=== PATIENT | male | born 1990 | race Caucasian/White ===

== ENCOUNTER 2019-04-03 14:02 | Inpatient (IN) ==
[2019-04-03] MEDS ORDERED: THIAMINE HCL 100 MG in SYRINGE 9 ML IV STA (14:55)
[2019-04-03] MEDS ORDERED: LORazepam 1 MG/2 ML VIAL IV STA ×2 (14:55→18:58)
[2019-04-03] MEDS ORDERED: SODIUM CHLORIDE 0.9% 1000ML 1,000 ML IV SCH (15:00)
[2019-04-03 15:25] LABS: Basophils # (auto) 0.05 K/uL (0-0.2); Basophils % (auto) 0.4 %; Eosinophils # (auto) 0.11 K/uL (0-0.5); Eosinophils % (auto) 0.9 %; Hematocrit (blood only) 50.6 % (42-52); Hemoglobin 18.4 g/dL (14.0-18.0); Immature Granulocytes # (auto) 0.05 K/uL (0.00-0.02); Immature Granulocytes % (auto) 0.4 %; Lymphocytes # (auto) 1.52 K/uL (1.2-3.4); Lymphocytes % (auto) 12.6 %; Mean Corpuscular Hgb Conc 36.4 g/dL (32-36); Mean Corpuscular Volume 93.5 fL (80-100); Mean Platelet Volume 11.1 fL (7.4-10.4); Monocytes # (auto) 0.83 K/uL (0.11-0.59); Monocytes % (auto) 6.9 %; Neutrophils # (auto) 9.52 K/uL (1.4-6.5); Neutrophils % (auto) 78.8 %; Platelet Count 287 K/uL (130-400); RDW Coefficient of Variation 13.8 % (11.5-14.5); RDW Standard Deviation 46.9 fL (36.4-46.3); Red Blood Count 5.41 M/uL (4.7-6.1); White Blood Count 12.08 K/uL (4.8-10.8)
[2019-04-03 15:41] LABS: Albumin Level 4.1 gm/dl (3.4-5.0); BUN Creatinine Ratio 7.9 (10-20); Calcium 9.7 mg/dl (8.5-10.1); Creatinine Clr Calc Pharmacy 185.7 ml/min; Est GFR (Non-African American) 102.7; Potassium 3.6 mmol/L (3.5-5.1)
[2019-04-03 15:44] LABS: Albumin Globulin Ratio 0.9 (0.9-2); Bilirubin,Total 0.6 mg/dl (0.2-1); Globulin 4.4 gm/dl (2.5-4.0); Total Protein 8.5 gm/dl (6.4-8.2)
[2019-04-03 15:45] LABS: INR 1.1 (0.9-1.1); Prothrombin Time 10.9 Seconds (9.0-12.0)
[2019-04-03 15:51] LABS: Acetaminophen < 2 ug/ml (10-30)
[2019-04-03 15:52] LABS: Salicylate < 1.7 mg/dl (2.8-20)
[2019-04-03 16:08] LABS: Appearance Urine Clear (Clear); Bacteria Urine Automated Negative (Negative); Blood Urine Negative (Negative); Color Urine Dark Yellow; Glucose Urine UA Negative (Negative); Ketones Urine Trace (Negative); Leukocyte Esterase Urine Trace (Negative); Nitrite Urine Negative (Negative); Protein Urine Trace (Negative); RBC Urine Automated 0-4 /hpf (0-4); Specific Gravity Urine 1.029 (1.000-1.030); Urobilinogen Urine Positive (Negative)
[2019-04-03 16:10] LABS: Bilirubin Urine Negative (Negative); Ictotest Urine Negative (Negative)
[2019-04-03 16:36] LABS: Amphetamines+Metham, Urine Neg (Neg); Barbiturates, Urine Neg (Neg); Benzodiazepine, Urine Neg (Neg); Cocaine, Urine Neg (Neg); MDMA (Ecstacy), Urine Neg (Neg); Methadone, Urine Neg (Neg); Opiate, Urine Neg (Neg); Phencyclidine, Urine Neg (Neg)
--- NOTE | 2019-04-03 18:53 | Emergency Department Note ---
Entered by Marcia Shipman acting as a scribe for Owen Higgins DO History of Present Illness General Chief complaint: Mental Health Evaluation Stated complaint: SUICIDAL THOUGHTS Time Seen by Provider: 04/03/19 14:50 Source: patient History of Present Illness Provider complaint: mental health evaluation Onset (ago): hour(s) (today) Location: head Pain Consistency: + constant Maximum Pain Intensity: 1 Quality: + other (mental health evaluation) Associated symptoms: + other (dull pain on the sides of his abdomen and states that he has tingling in his feet) The patient is a 28 year old male who presents to the Emergency Department with complaints of a mental health evaluation today. The patient states that he has had a drinking problem for the last 5 years. He states that he drinks whatever is available. He states that he last had alcohol last night and states that he drank about half of a fifth. 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 He states that he does not hear voices. The patient states that he has gone through withdrawal before, the last of which was several months ago. The patient states that he has not had blackouts before from stopping drinking. He states that he feels "hopeless." The patient states that he has not seen a counselor or tried to detox before. He reports having a dull pain on the sides of his abdomen and states that he has tingling in his feet. The patient states that he was taking Lisinopril HCTZ and states that he has stopped taking it. The patient denies tobacco or drug use. He denies a history of surgeries. Home Medications Home Medications Medication Instructions Recorded Confirmed Type lisinopril-hydrochlorothiazide 20 - 25 mg PO DAILY 04/04/19 04/04/19 History Allergies Allergy/AdvReac Type Severity Reaction Status Date / Time cat dander Allergy Unverified 04/04/19 00:37 ragweed pollen Allergy Unverified 04/04/19 00:37 Past Med/Surg History Medical History Alcohol abuse (Chronic) Hypertension Obesity Social History Preferred Language: Bahraini Communication Ability: Effective Desizing Machine Operator Required: No Beliefs That Will Affect Care: None Feels Safe at Home: Yes Smoking Status: Never smoker Review of Systems See HPI for pertinent positives & negatives. and A total of 10 systems reviewed and were otherwise negative Physical Exam Vital Signs Vital Signs - 24 hr 04/03/19 14:39 Temperature 36.9 C Temperature Source Oral Sepsis Recent Fever Within 48 Hours No Sepsis Action Taken by Nursing No Action Required Pulse Rate 114 H Respiratory Rate 22 Blood Pressure 166/119 H Blood Pressure Mean 134 Blood Pressure Position Sitting Pulse Oximetry 100 Oxygen Delivery Method Room Air GENERAL: Patient is awake, alert. He is very guarded and somewhat listless. EYES: The conjunctivae are clear. The pupils are round and reactive. EARS, NOSE, MOUTH AND THROAT: The nose is without any evidence of any deformity. Mucous membranes are moist.Tongue is midline NECK: The neck is nontender and supple. RESPIRATORY: Normal respiratory effort is noted. There is no evidence of wheezing rhonchi or rales to auscultation. CARDIOVASCULAR: Tachycardic rate and regular rhythm. No murmurs. GASTROINTESTINAL: The abdomen is soft. Bowel sounds are present in all quadrants . Abdomen is nontender. MUSCULOSKELETAL/EXTREMITIES: There is no evidence of gross deformity. Full range of motion is noted in the hips and shoulders. SKIN: There is no obvious evidence of any rash. There are no petechiae, pallor or cyanosis noted. NEUROLOGIC: Patient is awake alert and oriented x3. PSYCH: Listless and guarded. Appears depressed. Makes poor eye contact. Currently denying SI or HI. Course 1454: The patient was evaluated in room A10. A history and physical were performed. 1552: I checked on the patient. Administered Medications Gabapentin (Neurontin) 600 mg PO Q12H [facility] Stop: 04/06/19 12:01 Last Admin: 04/04/19 12:57 Dose: 600 mg Documented by: [id number] Hydrochlorothiazide (Hctz) 25 mg PO QAM [facility] Stop: 05/04/19 08:59 Last Admin: 04/04/19 08:51 Dose: 25 mg Documented by: [id number] Lisinopril (Zestril) 20 mg PO QAM [facility] Stop: 05/04/19 08:59 Last Admin: 04/04/19 08:51 Dose: 20 mg Documented by: [id number] Lorazepam (Ativan) 1 - 3 mg PO UD PRN; Protocol PRN Reason: EtoH Withdrawal AWSS 6-10+ Stop: 05/03/19 19:59 Last Admin: 04/03/19 23:55 Dose: 1 mg Documented by: [id number] Discontinued Medications Gabapentin (Neurontin) 1,200 mg PO TODAY@2130 [facility] Stop: 04/03/19 21:31 Last Admin: 04/03/19 21:47 Dose: 1,200 mg Documented by: [id number] Gabapentin (Neurontin) 600 mg PO Q6H [facility] Stop: 04/04/19 12:01 Last Admin: 04/04/19 12:58 Dose: 600 mg Documented by: [id number] Admin: 04/04/19 06:38 Dose: 600 mg Documented by: [id number] Lorazepam (Ativan) 1 mg in 2 mls @ 2 mls/min IV NOW STA Stop: 04/03/19 14:56 Last Admin: 04/03/19 15:46 Dose: Not Given Documented by: [id number] Thiamine HCl 100 mg/ Syringe 10 mls @ 2 mls/min IV NOW STA Stop: 04/03/19 14:59 Last Admin: 04/03/19 15:45 Dose: 2 mls/min Documented by: [id number] Sodium Chloride (Nss 1000ml) 1,000 mls @ 999 mls/hr IV .Q1H1M [facility]ICK[facility] Stop: 04/03/19 16:00 Last Infusion: 04/03/19 17:27 Dose: 0 mls/hr Documented by: [id number] Admin: 04/03/19 15:45 Dose: 999 mls/hr Documented by: [id number] Lorazepam (Ativan) 1 mg in 2 mls @ 2 mls/min IV NOW STA Stop: 04/03/19 18:59 Last Admin: 04/03/19 19:23 Dose: 2 mls/min Documented by: [id number] Sertraline HCl (Zoloft) 25 mg PO NOW ONE Stop: 04/04/19 12:27 Last Admin: 04/04/19 13:50 Dose: 25 mg Documented by: [id number] Medical Decision Making Differential Diagnosis Differential diagnosis: Etiologies such as psychiatric disorder, infection, hypoglycemia, electrolyte abnormalities, cardiac sources, intracerebral event, toxicological process, neurologic disorder, as well as others were entertained. Medical Records Attestation: I reviewed the patient's medical records. Home Medications Current Medication List: was personally reviewed by me Laboratory Data Attestation: I reviewed the patient's lab results. Result diagrams: 04/03/19 15:00 04/03/19 15:00 Lab Results 04/03/19 04/03/19 04/03/19 Range/Units 15:00 15:00 15:00 WBC 12.08 H (4.8-10.8) K/uL RBC 5.41 (4.7-6.1) M/uL Hgb 18.4 H (14.0-18.0) g/dL Hct 50.6 (42-52) % MCV 93.5 (80-100) fL MCH 34.0 (25-34) pg MCHC 36.4 H (32-36) g/dL RDW Std Deviation 46.9 H (36.4-46.3) fL RDW Coeff of Fawn 13.8 (11.5-14.5) % Plt Count 287 (130-400) K/uL MPV 11.1 H (7.4-10.4) fL Immature Gran % (Auto) 0.4 % Neut % (Auto) 78.8 % Lymph % (Auto) 12.6 % Cowley % (Auto) 6.9 % Eos % (Auto) 0.9 % Baso % (Auto) 0.4 % Immature Gran # (Auto) 0.05 H (0.00-0.02) K/uL Neut # (Auto) 9.52 H (1.4-6.5) K/uL Lymph # (Auto) 1.52 (1.2-3.4) K/uL Cowley # (Auto) 0.83 H (0.11-0.59) K/uL Eos # (Auto) 0.11 (0-0.5) K/uL Baso # (Auto) 0.05 (0-0.2) K/uL PT 10.9 (9.0-12.0) Seconds INR 1.1 (0.9-1.1) Sodium 139 (136-145) mmol/L Potassium 3.6 (3.5-5.1) mmol/L Chloride 106 (98-107) mmol/L Carbon Dioxide 26 (21-32) mmol/L Anion Gap 7.0 (3-11) BUN 8 (7-18) mg/dl Creatinine 1.00 (0.6-1.4) mg/dl Est Cr Clr Drug Dosing 185.7 ml/min Est GFR ( Amer) 119.0 Est GFR (Non-Af Amer) 102.7 BUN/Creatinine Ratio 7.9 L (10-20) Glucose 103 H (70-99) mg/dl Calcium 9.7 (8.5-10.1) mg/dl Magnesium 2.0 (1.8-2.4) mg/dl Total Bilirubin 0.6 (0.2-1) mg/dl AST 74 H (15-37) U/L ALT 99 H (12-78) U/L Alkaline Phosphatase 63 (45-117) U/L Total Protein 8.5 H (6.4-8.2) gm/dl Albumin 4.1 (3.4-5.0) gm/dl Globulin 4.4 H (2.5-4.0) gm/dl Albumin/Globulin Ratio 0.9 (0.9-2) Lipase 145 (73-393) U/L Folate (>5.38) ng/ml Urine Color Urine Appearance (Clear) Urine pH (4.5-7.5) Ur Specific Harlan (1.000-1.030) Urine Protein (Negative) Urine Glucose (UA) (Negative) Urine Ketones (Negative) Urine Blood (Negative) Urine Nitrite (Negative) Urine Bilirubin (Negative) Urine Urobilinogen (Negative) Ur Leukocyte Esterase (Negative) Urine WBC (Auto) (0-5) /hpf Urine RBC (Auto) (0-4) /hpf U Hyaline Cast (Auto) (0-5) /lpf U Epithel Cells (Auto) (0-5) /lpf Urine Bacteria (Auto) (Negative) Salicylates (2.8-20) mg/dl Urine Opiates Screen (Neg) Ur Methadone, Qual (Neg) Acetaminophen (10-30) ug/ml Urine Barbiturates (Neg) Ur Phencyclidine (PCP) (Neg) U Amphetamin/Meth Scrn (Neg) MDMA (Ecstasy) Screen (Neg) U Benzodiazepines Scrn (Neg) Ur Cocaine Metabolite (Neg) U Marijuana (THC) Screen (Neg) Ethyl Alcohol mg/dL (0-3) mg/dl 04/03/19 04/03/19 04/03/19 Range/Units 15:00 15:00 15:53 WBC (4.8-10.8) K/uL RBC (4.7-6.1) M/uL Hgb (14.0-18.0) g/dL Hct (42-52) % MCV (80-100) fL MCH (25-34) pg MCHC (32-36) g/dL RDW Std Deviation (36.4-46.3) fL RDW Coeff of Fawn (11.5-14.5) % Plt Count (130-400) K/uL MPV (7.4-10.4) fL Immature Gran % (Auto) % Neut % (Auto) % Lymph % (Auto) % Cowley % (Auto) % Eos % (Auto) % Baso % (Auto) % Immature Gran # (Auto) (0.00-0.02) K/uL Neut # (Auto) (1.4-6.5) K/uL Lymph # (Auto) (1.2-3.4) K/uL Cowley # (Auto) (0.11-0.59) K/uL Eos # (Auto) (0-0.5) K/uL Baso # (Auto) (0-0.2) K/uL PT (9.0-12.0) Seconds INR (0.9-1.1) Sodium (136-145) mmol/L Potassium (3.5-5.1) mmol/L Chloride (98-107) mmol/L Carbon Dioxide (21-32) mmol/L Anion Gap (3-11) BUN (7-18) mg/dl Creatinine (0.6-1.4) mg/dl Est Cr Clr Drug Dosing ml/min Est GFR ( Amer) Est GFR (Non-Af Amer) BUN/Creatinine Ratio (10-20) Glucose (70-99) mg/dl Calcium (8.5-10.1) mg/dl Magnesium (1.8-2.4) mg/dl Total Bilirubin (0.2-1) mg/dl AST (15-37) U/L ALT (12-78) U/L Alkaline Phosphatase (45-117) U/L Total Protein (6.4-8.2) gm/dl Albumin (3.4-5.0) gm/dl Globulin (2.5-4.0) gm/dl Albumin/Globulin Ratio (0.9-2) Lipase (73-393) U/L Folate (>5.38) ng/ml Urine Color Urine Appearance (Clear) Urine pH (4.5-7.5) Ur Specific Harlan (1.000-1.030) Urine Protein (Negative) Urine Glucose (UA) (Negative) Urine Ketones (Negative) Urine Blood (Negative) Urine Nitrite (Negative) Urine Bilirubin (Negative) Urine Urobilinogen (Negative) Ur Leukocyte Esterase (Negative) Urine WBC (Auto) (0-5) /hpf Urine RBC (Auto) (0-4) /hpf U Hyaline Cast (Auto) (0-5) /lpf U Epithel Cells (Auto) (0-5) /lpf Urine Bacteria (Auto) (Negative) Salicylates < 1.7 L (2.8-20) mg/dl Urine Opiates Screen Neg (Neg) Ur Methadone, Qual Neg (Neg) Acetaminophen < 2 L (10-30) ug/ml Urine Barbiturates Neg (Neg) Ur Phencyclidine (PCP) Neg (Neg) U Amphetamin/Meth Scrn Neg (Neg) MDMA (Ecstasy) Screen Neg (Neg) U Benzodiazepines Scrn Neg (Neg) Ur Cocaine Metabolite Neg (Neg) U Marijuana (THC) Screen Neg (Neg) Ethyl Alcohol mg/dL < 3.0 (0-3) mg/dl 04/03/19 04/03/19 Range/Units 15:53 20:19 WBC (4.8-10.8) K/uL RBC (4.7-6.1) M/uL Hgb (14.0-18.0) g/dL Hct (42-52) % MCV (80-100) fL MCH (25-34) pg MCHC (32-36) g/dL RDW Std Deviation (36.4-46.3) fL RDW Coeff of Fawn (11.5-14.5) % Plt Count (130-400) K/uL MPV (7.4-10.4) fL Immature Gran % (Auto) % Neut % (Auto) % Lymph % (Auto) % Cowley % (Auto) % Eos % (Auto) % Baso % (Auto) % Immature Gran # (Auto) (0.00-0.02) K/uL Neut # (Auto) (1.4-6.5) K/uL Lymph # (Auto) (1.2-3.4) K/uL Cowley # (Auto) (0.11-0.59) K/uL Eos # (Auto) (0-0.5) K/uL Baso # (Auto) (0-0.2) K/uL PT (9.0-12.0) Seconds INR (0.9-1.1) Sodium (136-145) mmol/L Potassium (3.5-5.1) mmol/L Chloride (98-107) mmol/L Carbon Dioxide (21-32) mmol/L Anion Gap (3-11) BUN (7-18) mg/dl Creatinine (0.6-1.4) mg/dl Est Cr Clr Drug Dosing ml/min Est GFR ( Amer) Est GFR (Non-Af Amer) BUN/Creatinine Ratio (10-20) Glucose (70-99) mg/dl Calcium (8.5-10.1) mg/dl Magnesium (1.8-2.4) mg/dl Total Bilirubin (0.2-1) mg/dl AST (15-37) U/L ALT (12-78) U/L Alkaline Phosphatase (45-117) U/L Total Protein (6.4-8.2) gm/dl Albumin (3.4-5.0) gm/dl Globulin (2.5-4.0) gm/dl Albumin/Globulin Ratio (0.9-2) Lipase (73-393) U/L Folate 9.60 (>5.38) ng/ml Urine Color Dark Yellow Urine Appearance Clear (Clear) Urine pH 7.0 (4.5-7.5) Ur Specific Harlan 1.029 (1.000-1.030) Urine Protein Trace H (Negative) Urine Glucose (UA) Negative (Negative) Urine Ketones Trace H (Negative) Urine Blood Negative (Negative) Urine Nitrite Negative (Negative) Urine Bilirubin Negative (Negative) Urine Urobilinogen Positive H (Negative) Ur Leukocyte Esterase Trace H (Negative) Urine WBC (Auto) 1-5 (0-5) /hpf Urine RBC (Auto) 0-4 (0-4) /hpf U Hyaline Cast (Auto) 1-5 (0-5) /lpf U Epithel Cells (Auto) 10-20 H (0-5) /lpf Urine Bacteria (Auto) Negative (Negative) Salicylates (2.8-20) mg/dl Urine Opiates Screen (Neg) Ur Methadone, Qual (Neg) Acetaminophen (10-30) ug/ml Urine Barbiturates (Neg) Ur Phencyclidine (PCP) (Neg) U Amphetamin/Meth Scrn (Neg) MDMA (Ecstasy) Screen (Neg) U Benzodiazepines Scrn (Neg) Ur Cocaine Metabolite (Neg) U Marijuana (THC) Screen (Neg) Ethyl Alcohol mg/dL (0-3) mg/dl Blood Pressure Blood Pressure Findings: Elevated blood pressure Blood Pressure Disposition: elevated BP felt to be situational MDM Narrative The patient is a 28-year-old male who presented to the emergency department for a mental health evaluation. The patient had very severe anxiety. He has a history of alcoholism. On my initial evaluation he denied any suicidal homicidal ideation. In triage he did admit to some loose suicidal ideation. The patient was medically cleared in the emergency department. He was treated with IV fluids. The patient had blood pressure that was elevated but he did not appear to be in significant withdrawal at this time. The patient was treated with Ativan in the emergency department. I discussed the patient's laboratory and radiographic studies with him. He was medically cleared and then evaluated by the mental health lining caser. Upon her evaluation she found the patient had very significant suicidal ideation with a plan to use nitrogen to harm himself. Apparently he does have access to this chemical. For this reason he was felt to be very high risk. At this time a 201 voluntary admission is being sought after. The patient was much more comfortable on reevaluation. The patient was signed out to Dr. Morrison at change of shift. Please see his note for continuation of care and final disposition. Impression & Plan Alcohol addiction, Anxiety, Depression Discharge Plan Visit Data *Final* Discharge Date/Time: 04/03/19 20:31 Chief Complaint: Mental Health Evaluation Stated Complaint: SUICIDAL THOUGHTS ED Provider: Owen Higgins Discharge Problem: Alcohol addiction, Anxiety, Depression Patient Disposition: Admitted As Inpatient Discharge Instructions Interventions: ED Discharge Assessment Last Done: 04/03/19 20:31 Discharge Problem: Alcohol addiction Qualifiers: Substance use status: unspecified alcohol-induced disorder Qualified Code(s): F10.29 - Alcohol dependence with unspecified alcohol-induced disorder Depression Qualifiers: Depression Type: unspecified Qualified Code(s): F32.9 - Major depressive disorder, single episode, unspecified The scribe's documentation has been prepared under my direction and personally reviewed by me in its entirety. I confirm that the note above accurately reflects all work, treatment, procedures, and medical decision making performed by me.
[2019-04-03] MEDS ORDERED: BISMUTH SUBSALICYLATE PER ML OMNICELL CHARGE PO PRN (19:56)
[2019-04-03] MEDS ORDERED: MAGNESIUM HYDROXIDE SUSP 30 ML UDC PO PRN (19:56)
[2019-04-03] MEDS ORDERED: SODIUM CHLORIDE 0.65% NA SOLN 45 ML (OCEAN) PRN (19:56)
[2019-04-03] MEDS ORDERED: ALUMINUM/MAGNESIUM SUSP 30 ML UDC PO PRN (19:56)
[2019-04-03] MEDS ORDERED: LORazepam 1 MG TAB PO PRN (20:00)
[2019-04-03] MEDS ORDERED: GABAPENTIN 1200MG ALCOHOL WITHDRAWAL LOAD PO STA (20:00)
[2019-04-03] MEDS ORDERED: GABAPENTIN 600 MG TAB PO SCH (21:30)
--- NOTE | 2019-04-04 01:12 | Emergency Department Note ---
ED Visit Note This patient was signed out to me by Dr. Higgins at shift change. The patient was being evaluated by the [facility]. He had been medically cleared. [facility] is going to take him voluntarily for further inpatient psychiatric treatment and evaluation. . : Alcohol addiction Qualifiers: Substance use status: unspecified alcohol-induced disorder Qualified Code(s): F10.29 - Alcohol dependence with unspecified alcohol-induced disorder Depression Qualifiers: Depression Type: unspecified Qualified Code(s): F32.9 - Major depressive disorder, single episode, unspecified
[2019-04-04] MEDS: GABAPENTIN 600 MG TAB PO SCH ×4 (06:38→21:20)
--- NOTE | 2019-04-04 08:19 | History & Physical ---
Date of Service April 04, 2019 Impression / Recommendations Impression 28-year-old single male with a several year history of alcohol use disorder and depression who presents with worsening mood and suicidal thoughts with multiple plans and access to the means, in the context of disclosing his alcoholism to his girlfriend and parents. Although he has been drinking heavily and daily for some time, he has hidden it from them, but has been unable to stop on his own despite multiple attempts. He initially reported willingness for rehab, but then endorsed suicidal thoughts in the ER and was willing for voluntary hospitalization. He has never had any psychiatric treatment in the past, and is willing for a trial of an antidepressant and a family meeting. He would benefit from ongoing psychoeducation about alcoholism, and working on healthy ways to cope. Inpatient treatment is necessary due to the severity of his symptoms and risk for suicide if discharged at this time. (1) Depression: 04/04 -discussed the diagnosis with the patient, as well as recommended treatment and the importance of addressing both his alcohol use disorder and mood disorder simultaneously. Most appropriate diagnosis is depression not otherwise specified, as his depression and alcoholism developed simultaneously, so this could represent either major depressive disorder or substance-induced depression, or some combination of the 2. Discussed SSRI medications in general, and sertraline and particular, including review of side effects, risks, and benefits. Patient was given an UpToDate patient hand out on the medication. -Every 15 minute checks for safety. -Encourage group attendance and participation; work on healthy coping skills and discharge safety plan. -Family meeting with girlfriend and/or parents. Depression Type: unspecified Qualified Code(s): F32.9 - Major depressive disorder, single episode, unspecified Present on Admission?: Yes (2) Alcohol addiction: 04/04 - Brief intervention was offered and accepted Intervention was greater than 5 min in length. Brief interventions include: 1. Assess Readiness to Quit, 2. Advise: Help Patient to Reduce or Abstain from Alcohol, 3. Agree: Set Specific, Feasible Goals, 4. Assist: Anticipate barriers, Problem-Solving Solutions. Social work to 5. Arrange: Referrals to appropriate treatment. Summary of intervention: The patient is in determination stage with regards to transtheoretical model of change. The patient is advised to decrease alcohol consumption due to depressant effects and risk of interactions with prescription medications. The patient agreed to consider treatment options, including inpatient rehab, and will be provided with recovery materials to continue to education self on how to cope with their condition without drinking. -Recovery protocol. -Continue AWSS protocol for withdrawal, including gabapentin taper and lorazepam as needed. Substance use status: unspecified alcohol-induced disorder Qual ified Code(s): F10.29 - Alcohol dependence with unspecified alcohol-induced disorder Present on Admission?: Yes (3) HTN (hypertension): 04/04 - Patient reports he was diagnosed with HTN a couple of years ago after a screening at work, and started on lisinopril 20mg/HCTZ 25mg, which he has recently been nonadherent with. He was supposed to schedule with a PCP but has not. Will need referral for ongoing OP treatment. Resumed medication, and monitor BP. Present on Admission?: Yes (4) Obesity: 04/04 - Encourage healthy diet and regular exercise. Cutting out alcohol should also help with weight loss. Present on Admission?: Yes Inventory Assets Strengths: supportive family and G, employed and likes job, willing for treatment Needs: rehab, medical treatment, treatment for depression Risk Factors Assessment Male: Yes : Yes Do You Have Access To A Gun?: No Health Problems: Yes Mental Health Diagnoses: Yes Substance Use Disorders: Yes Previous Attempt: No Family History of Suicide: No Previous Psychiatric Hospitalization: No Hopelessness: Yes Smoker: No Protective Factors Assessment Muslim Beliefs: No : No Responsible for Young Children: No Employed: Yes ([employer]) Stable Relationships: Yes Supportive Family: Yes Good Rapport with Provider: No Psychiatric History Identifying Data JON HERRMANN is a 28-year-old M who lives alone in [place], has a history of alcohol dependence, and was admitted on 04/03/19 20:42 on a 201 voluntary commitment for suicidal ideation and a plan to use nitrogen gas which he has access to at work, or to buy a gun. Chief Complaint "The March 22 weekend was, this is the weekend I'm going to quit, but every day, I just didn't quit, started having dark thoughts because I realized I had no control". History of Present Illness This is the patient's first psychiatric hospitalization. He presented to the ER requesting rehab, stating he had been drinking almost 1/5 of vodka daily and has been trying unsuccessfully to stop drinking for 4-5 years; on assessment there endorsed depression, hopelessness, and suicidal ideation with multiple plans and access to the means. He had thought of using nitrogen, which she has access to at work, or buying a gun and shooting himself to end his life. He was admitted voluntarily. His last drink was about 24 hours prior to presentation, and he was hypertensive with a history of withdrawal, so was started on the gabapentin taper and AWSS withdrawal protocol. He reported that he wants to ask his girlfriend to move in with him, but has not done so as he did not want her to see the extent of his drinking. He just disclosed his alcoholism to her this past weekend, and was agreeable to involving her in his parents and his treatment. He reported feeling depressed for years but never seeking treatment, and suicidal thoughts for the past week, as he felt it would be easier to end his life than to tell other people about his drinking problem. He reported being prescribed lisinopril/HCTZ a few months ago for high blood pressure, but has been noncompliant with it due to his drinking. He also reported over eating and poor diet, leading to obesity. On my assessment, he reports alcohol dependence for years, with multiple failed attempts to quit on his own. He planned to quit drinking the weekend of March 22, but was unable to and continued to drink. He has hidden his drinking from his family and friends, and although he and his girlfriend had talked about moving in together, he made no attempt to make that happen as he didn't want her to "have to live with my drinking." He typically drinks at night, and his girlfriend has never stayed overnight so has never been around him while drinking. He says his typical day is to "go to work, feel like shit, feel better as the day goes on," and typically starts drinking between 7-9 pm. 90% of the time he drinks vodka (otherwise beer), estimates he drinks 1/2 - 1 fifth a night. Longest period of sobriety in the past year or so was a weekend, prior to that he could go a week or two without drinking. Reports history of withdrawal including sleep disturbance, claminess, and diarrhea. Last drink was Tuesday night, and had sleep disturbance last night and loose stool this morning, but denies other withdrawal symptoms. Typically has cravings to drink, and thinks he continues to drink as "it makes the noise of the day kind of fade away," and helps him to fall asleep. Mood has been low for "years," but acutely worse over the past few weeks. Describes himself as introverted, but has been more isolative recently. Energy and concentration are low, he has guilt (regarding his drinking), fatigue, but no psychomotor changes. He started having suicidal thoughts around March 22 when he was unable to quit drinking on his own, thinking "I should just kill myself now before I'm too unhealthy or have a stroke or heart attack, that way I can take care of my own narrative." He describes plans to use nitrogen (saw a documentary on euthanasia, "seemed like a peaceful way to go,") or using a gun. He denies taking any steps towards acting on these, but was worried he might, "that's when I decided I needed help." He had thought about writing suicide notes, "but it was too hard," due to thinking about how his would affect his loved ones. Denies anxiety, panic, PTSD, OCD, psychosis and gino. Reports life long overeating of poor quality, unhealthy foods. Denies that he uses eating to cope, "that's what drinking is for." Denies binge eating and purging. He called his parents and told them he was hospitalized and about his alcoholism, and says they were "confused, they didn't know there was a problem, but glad I was getting help." Past Psychiatric History Previous Psych History: Attended individual therapy around age 11 as mother "was depressed and decided everyone needed therapy." Current Psychiatric Diagnosis: Depression Outpatient Services: None Previous Psych Admissions: None Do You Have Access To A Gun?: No History of Previous Suicide Attempt: No Past Medication Trials: None Allergies Allergy/AdvReac Type Severity Reaction Status Date / Time cat dander Allergy Unverified 04/04/19 00:37 ragweed pollen Allergy Unverified 04/04/19 00:37 Home Medications Home Medications Medication Instructions Recorded Confirmed Type lisinopril-hydrochlorothiazide 20 - 25 mg PO DAILY 04/04/19 04/04/19 History Family History Family History of: Depression (mother) Alcohol History Hx of Alcohol Use Over the Past 12 Months: Yes (almost a 5th of vodka daily) AUDIT Total Score: 26 Drinking since age 22, while a [employer] undergrad. 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 H/o mild withdrawal as above, no h/o seizures or DTs. Denies h/o legal problems due to drinking, but impairs relationships and efficiency at work. Smoking Use Have You Smoked or Used Tobacco Products in the Last 30 Days: No Smoking Status: Never smoker Substance History Hx of Prescription Med Misuse Over the Past 12 Months: No Hx of Over the Counter Med Misuse Over the Past 12 Months: No Hx of Inhalent Misuse Over the Past 12 Months: No Hx of Organic Substance Use Over the Past 12 Months: No Hx of Illegal Substances/Street Drug Use Over Past 12 Months: No Problems as a Result of Past Substance Use: None Identified Personal History Living Arrangements: Home Living Arrangements Comments: Recently bought a home in [place] and lives there alone. Has a girlfriend and would like to ask her to move in with him. Childhood: Grew up in [place], raised by both parents, with an older brother and sister. Father was a informatics consultant, and mother stayed at home until he was in 5th grade, then went back to work as a nurse. 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: No Beliefs That Will Affect Care: None Feels Safe at Home: Yes Smoking Status: Never smoker Review of Systems Review of Systems: All systems reviewed & are unremarkable except as noted in HPI & below Physical Exam Psychiatric: Orientation: alert, oriented x 3 and cooperative Apperance: appropriately dressed, appropriately groomed and appeared stated age Eye Contact: good eye contact and + fair eye contact Motor Behavior: + psychomotor agitation (jiglling legs throughout assessment); n tremor Speech: normal rate/rhythm/volume of speech Affect: + depressed affect, + tearful affect and mood congruent with affect Mood: + depressed mood Thought Process: goal directed thought process Thought Content: + hopelessness, + worthlessness, + loneliness, + guilt and + self deprecation Suicidal Thoughts: + reports suicidal thoughts multiple plans - nitrogen (has access at work) or buy gun and shoot self Homicidal Thoughts: denies homicidal thoughts Hallucinations: no auditory hallucinations and no visual hallucinations Cognition: recent memory grossly intact, remote memory grossly intact, attention grossly intact and language grossly intact Estimated Intelligence: consistent with education level Insight: + fair insight Judgement: + fair judgement Vital Signs (Past 24 Hours): Last Vital Signs Temp 36.4 C L 04/04/19 06:34 Pulse 98 H 04/04/19 06:36 Resp 20 04/04/19 06:34 BP 173/133 H 04/04/19 06:36 Pulse Ox 97 04/03/19 20:31 Exam Statement: A physical exam was performed in the ER prior to admission to the unit by Dr. Owen Higgins. I accept that physical as correct/medical clearance for the inpatient physical exam. Results & Data Laboratory Results Laboratory Results - last 24 hr 04/03/19 04/03/19 04/03/19 15:00 15:00 15:00 WBC 12.08 H RBC 5.41 Hgb 18.4 H Hct 50.6 MCV 93.5 MCH 34.0 MCHC 36.4 H RDW Std Deviation 46.9 H RDW Coeff of Fawn 13.8 Plt Count 287 MPV 11.1 H Immature Gran % (Auto) 0.4 Neut % (Auto) 78.8 Lymph % (Auto) 12.6 [place] % (Auto) 6.9 Eos % (Auto) 0.9 Baso % (Auto) 0.4 Immature Gran # (Auto) 0.05 H Neut # (Auto) 9.52 H Lymph # (Auto) 1.52 [place] # (Auto) 0.83 H Eos # (Auto) 0.11 Baso # (Auto) 0.05 PT 10.9 INR 1.1 Sodium 139 Potassium 3.6 Chloride 106 Carbon Dioxide 26 Anion Gap 7.0 BUN 8 Creatinine 1.00 Est Cr Clr Drug Dosing 185.7 Est GFR ( Amer) 119.0 Est GFR (Non-Af Amer) 102.7 BUN/Creatinine Ratio 7.9 L Glucose 103 H Calcium 9.7 Magnesium 2.0 Total Bilirubin 0.6 AST 74 H ALT 99 H Alkaline Phosphatase 63 Total Protein 8.5 H Albumin 4.1 Globulin 4.4 H Albumin/Globulin Ratio 0.9 Lipase 145 Folate Urine Color Urine Appearance Urine pH Ur Specific [place] Urine Protein Urine Glucose (UA) Urine Ketones Urine Blood Urine Nitrite Urine Bilirubin Urine Urobilinogen Ur Leukocyte Esterase Urine WBC (Auto) Urine RBC (Auto) U Hyaline Cast (Auto) U Epithel Cells (Auto) Urine Bacteria (Auto) Salicylates Urine Opiates Screen Ur Methadone, Qual Acetaminophen Urine Barbiturates Ur Phencyclidine (PCP) U Amphetamin/Meth Scrn MDMA (Ecstasy) Screen U Benzodiazepines Scrn Ur Cocaine Metabolite U Marijuana (THC) Screen Ethyl Alcohol mg/dL 04/03/19 04/03/19 04/03/19 15:00 15:00 15:53 WBC RBC Hgb Hct MCV MCH MCHC RDW Std Deviation RDW Coeff of Fa[place] Plt Count MPV Immature Gran % (Auto) Neut % (Auto) Lymph % (Auto) [place] % (Auto) Eos % (Auto) Baso % (Auto) Immature Gran # (Auto) Neut # (Auto) Lymph # (Auto) [place] # (Auto) Eos # (Auto) Baso # (Auto) PT INR Sodium Potassium Chloride Carbon Dioxide Anion Gap BUN Creatinine Est Cr Clr Drug Dosing Est GFR ( Amer) Est GFR (Non-Af Amer) BUN/Creatinine Ratio Glucose Calcium Magnesium Total Bilirubin AST ALT Alkaline Phosphatase Total Protein Albumin Globulin Albumin/Globulin Ratio Lipase Folate Urine Color Urine Appearance Urine pH Ur Specific [place] Urine Protein Urine Glucose (UA) Urine Ketones Urine Blood Urine Nitrite Urine Bilirubin Urine Urobilinogen Ur Leukocyte Esterase Urine WBC (Auto) Urine RBC (Auto) U Hyaline Cast (Auto) U Epithel Cells (Auto) Urine Bacteria (Auto) Salicylates < 1.7 L Urine Opiates Screen Neg Ur Methadone, Qual Neg Acetaminophen < 2 L Urine Barbiturates Neg Ur Phencyclidine (PCP) Neg U Amphetamin/Meth Scrn Neg MDMA (Ecstasy) Screen Neg U Benzodiazepines Scrn Neg Ur Cocaine Metabolite Neg U Marijuana (THC) Screen Neg Ethyl Alcohol mg/dL < 3.0 04/03/19 04/03/19 15:53 20:19 WBC RBC Hgb Hct MCV MCH MCHC RDW Std Deviation RDW Coeff of [place] Plt Count MPV Immature Gran % (Auto) Neut % (Auto) Lymph % (Auto) [place] % (Auto) Eos % (Auto) Baso % (Auto) Immature Gran # (Auto) Neut # (Auto) Lymph # (Auto) [place] # (Auto) Eos # (Auto) Baso # (Auto) PT INR Sodium Potassium Chloride Carbon Dioxide Anion Gap BUN Creatinine Est Cr Clr Drug Dosing Est GFR ( Amer) Est GFR (Non-Af Amer) BUN/Creatinine Ratio Glucose Calcium Magnesium Total Bilirubin AST ALT Alkaline Phosphatase Total Protein Albumin Globulin Albumin/Globulin Ratio Lipase Folate 9.60 Urine Color Dark Yellow Urine Appearance Clear Urine pH 7.0 Ur Specific [place] 1.029 Urine Protein Trace H Urine Glucose (UA) Negative Urine Ketones Trace H Urine Blood Negative Urine Nitrite Negative Urine Bilirubin Negative Urine Urobilinogen Positive H Ur Leukocyte Esterase Trace H Urine WBC (Auto) 1-5 Urine RBC (Auto) 0-4 U Hyaline Cast (Auto) 1-5 U Epithel Cells (Auto) 10-20 H Urine Bacteria (Auto) Negative Salicylates Urine Opiates Screen Ur Methadone, Qual Acetaminophen Urine Barbiturates Ur Phencyclidine (PCP) U Amphetamin/Meth Scrn MDMA (Ecstasy) Screen U Benzodiazepines Scrn Ur Cocaine Metabolite U Marijuana (THC) Screen Ethyl Alcohol mg/dL Current Inpatient Medications Current Inpatient Medications: Current Inpatient Medications Al Hydrox/Mg Hydrox/Simethicone (Maalox) 30 ml PO Q4H PRN PRN Reason: GI Upset Stop: 05/03/19 19:55 Bismuth Subsalicylate (Kaopectate) 15 ml PO PRN PRN PRN Reason: Loose Stool Stop: 05/03/19 19:55 Gabapentin (Neurontin) 600 mg PO Q12H RICKY Stop: 04/06/19 12:01 Gabapentin (Neurontin) 600 mg PO Q6H RICKY Stop: 04/04/19 12:01 Last Admin: 04/04/19 06:38 Dose: 600 mg Documented by: Gabapentin (Neurontin) 600 mg PO Q8H RICKY Stop: 04/05/19 14:01 Gabapentin (Neurontin) 600 mg PO Q24H RICKY Stop: 04/07/19 12:01 Hydrochlorothiazide (Hctz) 25 mg PO QAM RICKY Stop: 05/04/19 08:59 Hydroxyzine HCl (Vistaril) 25 mg PO Q4H PRN PRN Reason: Anxiety Stop: 05/03/19 19:55 Hydroxyzine HCl (Vistaril) 50 mg PO HSZ PRN PRN Reason: Insomnia Stop: 05/03/19 19:55 Lisinopril (Zestril) 20 mg PO QAM RICKY Stop: 05/04/19 08:59 Lorazepam (Ativan) 1 - 3 mg PO UD PRN; Protocol PRN Reason: EtoH Withdrawal AWSS 6-10+ Stop: 05/03/19 19:59 Last Admin: 04/03/19 23:55 Dose: 1 mg Documented by: Magnesium Hydroxide (Milk Of Magnesia) 30 ml PO DAILY PRN PRN Reason: Heartburn Stop: 05/03/19 19:55 Sodium Chloride ([place] Nasal) 1 - 2 sprays NA PRN PRN PRN Reason: Nasal Dryness/Congestion Stop: 05/03/19 19:55 CPT Code CPT Code Initial Hospital Care: 42297
[2019-04-04] MEDS: hydroCHLOROthiazide 25 MG TAB PO SCH (08:51)
[2019-04-04] MEDS: LISINOPRIL 20 MG TAB PO SCH (08:51)
[2019-04-04] MEDS ORDERED: SERTRALINE HCL 50 MG TABLET PO ONE (12:26)
[2019-04-05] MEDS: GABAPENTIN 600 MG TAB PO SCH ×2 (06:21→13:42)
[2019-04-05] MEDS: hydroCHLOROthiazide 25 MG TAB PO SCH (08:24)
[2019-04-05] MEDS: LISINOPRIL 20 MG TAB PO SCH (08:24)
[2019-04-05] MEDS: SERTRALINE HCL 50 MG TABLET PO SCH (08:25)
--- NOTE | 2019-04-05 09:38 | Psychiatric Progress Note ---
Date of Service April 05, 2019 Impression / Recommendations Impression 28-year-old single male with a several year history of alcohol use disorder and depression who presents with worsening mood and suicidal thoughts with multiple plans and access to the means, in the context of disclosing his alcoholism to his girlfriend and parents. Although he has been drinking heavily and daily for some time, he has hidden it from them, but has been unable to stop on his own despite multiple attempts. He initially reported willingness for rehab, but then endorsed suicidal thoughts in the ER and was willing for voluntary hospitalization. Tolerating initiation of sertraline, currently titrated to 50mg daily. Family meetings scheduled separately for today with parents and girlfriend. He remains willing for D&A rehab at discharge. He would benefit from ongoing psychoeducation about alcoholism, and working on healthy ways to cope. Inpatient treatment is necessary due to the severity of his symptoms and risk for suicide if discharged at this time. (1) Depression: 04/04 -discussed the diagnosis with the patient, as well as recommended treatment and the importance of addressing both his alcohol use disorder and mood disorder simultaneously. Most appropriate diagnosis is depression not otherwise specified, as his depression and alcoholism developed simultaneously, so this could represent either major depressive disorder or substance-induced depression, or some combination of the 2. Discussed SSRI medications in general, and sertraline and particular, including review of side effects, risks, and benefits. Patient was given an UpToDate patient hand out on the medication. -Every 15 minute checks for safety. -Encourage group attendance and participation; work on healthy coping skills and discharge safety plan. -Family meeting with girlfriend and/or parents. 04/05 - Denies side effects to initiation of low-dose sertraline, continue to monitor. Consider further titration as tolerated - No significant improvement in mood, pt continues to feel defeated but suicidality is reduced from admission - Family meeting with parents and girlfriend today to discuss further (2) Alcohol addiction: 04/04 - Brief intervention was offered and accepted Intervention was greater than 5 min in length. Brief interventions include: 1. Assess Readiness to Quit, 2. Advise: Help Patient to Reduce or Abstain from Alcohol, 3. Agree: Set Specific, Feasible Goals, 4. Assist: Anticipate barriers, Problem-Solving Solutions. Social work to 5. Arrange: Referrals to appropriate treatment. Summary of intervention: The patient is in determination stage with regards to transtheoretical model of change. The patient is advised to decrease alcohol consumption due to depressant effects and risk of interactions with prescription medications. The patient agreed to consider treatment options, including inpatient rehab, and will be provided with recovery materials to continue to education self on how to cope with their condition without drinking. -Recovery protocol. -Continue AWSS protocol for withdrawal, including gabapentin taper and lorazepam as needed. 04/05 - Pt admitting willingness for D&A rehab at discharge, recognizing his alcohol addiction is concerning and requires significant attention to change behaviors - Family meetings today with parents and girlfriend to discuss further (3) HTN (hypertension): 04/04 - Patient reports he was diagnosed with HTN a couple of years ago after a screening at work, and started on lisinopril 20mg/HCTZ 25mg, which he has recently been nonadherent with. He was supposed to schedule with a PCP but has not. Will need referral for ongoing OP treatment. Resumed medication, and monitor BP. 04/05 - BP is slightly improved today; pt mentions it historically taking several days for readings to be affected by medications - will continue to monitor (4) Obesity: 04/04 - Encourage healthy diet and regular exercise. Cutting out alcohol should also help with weight loss. Inventory Assets Strengths: supportive family and GF, employed and likes job, willing for treatment Needs: rehab, medical treatment, treatment for depression Risk Factors Assessment Male: Yes : Yes Do You Have Access To A Gun?: No Health Problems: Yes Mental Health Diagnoses: Yes Substance Use Disorders: Yes Previous Attempt: No Family History of Suicide: No Previous Psychiatric Hospitalization: No Hopelessness: Yes Smoker: No Protective Factors Assessment Oriental [employer] Beliefs: No : No Responsible for Young Children: No Employed: Yes ([employer]) Stable Relationships: Yes Supportive Family: Yes Good Rapport with Provider: No Interval History Identifying Information JON HERRMANN is a 28-year-old M who lives alone in [place], has a history of alcohol dependence, and was admitted on 04/03/19 20:42 on a 201 voluntary commitment for suicidal ideation and a plan to use nitrogen gas which he has access to at work, or to buy a gun. Chief Complaint "Um, ok...I don't feel a lot different." Review of Systems Notes Constitutional: denied Cardiovascular: denied Respiratory: denied Gastrointestinal: denied Neurological: denied Psychiatric: denies symptoms other than stated above Total of at least 10 systems reviewed, pertinent positives as above and in HPI. Sleep Information Total Hours of Sleep: 6.75 Sleep Comments: patient noted to snore loudly throughtout the night. Meal Information Percent Meal Consumed - Breakfast: 100 Percent Meal Consumed - Lunch: 90 Percent Meal Consumed - Dinner: 100 Subjective Subjective Patient was seen & assessed and interval progress reviewed with Nursing and social work. Staff reports the patient has been participating in groups. He received a visit from his girlfriend and parents last evening, all of whom are caught off-guard by revelation of his alcohol use. There are two meetings scheduled for today, one with parents and one with his girlfriend. Pt was seen today to assess progress since admission. Pt states he is "ok" but that he does not feel much different. Pt reports continued embarrassment and shame. While he admits he is still willing for D&A rehab at discharge, he is open about his concern regarding the stigma. Pt states, "I know it's a problem, I need to go because I haven't been able to function as an adult without alcohol." Pt honestly admits that it is frustrating to him "to see people and think, 'you drink a lot, and you can function in society, why can't I?'." Pt is somewhat nervous about his family meetings today, as he admits his parents and girlfriend were "surprised" by his alcohol use and depressive symptoms. Pt states he continues to experience low mood and hopelessness, but has not clearly had SI since the evening of his admission. Despite this, he does not have much hope for his future at this point in time. Pt denies any side effects from initiation of sertraline, and is agreeable to further titration as tolerated. He denies other needs or concerns today. Physical Exam Psychiatric Orientation: alert, oriented x 3 and cooperative Apperance: appropriately dressed (casually in nice shirt and shorts) and appropriately groomed Obese-appearing, male appearing well-groomed, wearing corrective lenses. Casually dressed, level of hygiene and hydration appear adequate. Eye Contact: good eye contact Motor Behavior: steady gait and station and no abnormal motor movements Speech: normal rate/rhythm/volume of speech (somewhat monotone, rather brief answers to questions) Affect: + depressed affect Mood: + depressed mood ("I don't feel much different.") Thought Process: goal directed thought process and clear/coherent thought process Thought Content: reality based without delusions Suicidal Thoughts: denies suicidal thoughts (but continues to endorse hopelessness) and denies suicidal intent Homicidal Thoughts: denies homicidal thoughts Hallucinations: no auditory hallucinations and no visual hallucinations Cognition: attention grossly intact and language grossly intact Estimated Intelligence: consistent with education level Insight: + fair insight Judgement: + fair judgement Vital Signs (Past 24 Hours) Last Vital Signs Temp 36.6 C 04/05/19 06:55 Pulse 77 04/05/19 06:55 Resp 18 04/05/19 06:55 BP 177/79 H 04/05/19 06:55 Pulse Ox 97 04/03/19 20:31 Results & Data Current Inpatient Medications Current Inpatient Medications: Current Inpatient Medications Al Hydrox/Mg Hydrox/Simethicone (Maalox) 30 ml PO Q4H PRN PRN Reason: GI Upset Stop: 05/03/19 19:55 Bismuth Subsalicylate (Kaopectate) 15 ml PO PRN PRN PRN Reason: Loose Stool Stop: 05/03/19 19:55 Gabapentin (Neurontin) 600 mg PO Q12H RICKY Stop: 04/06/19 12:01 Last Admin: 04/04/19 12:57 Dose: 600 mg Documented by: Gabapentin (Neurontin) 600 mg PO Q8H RICKY Stop: 04/05/19 14:01 Last Admin: 04/05/19 06:21 Dose: 600 mg Documented by: Gabapentin (Neurontin) 600 mg PO Q24H RICKY Stop: 04/07/19 12:01 Hydrochlorothiazide (Hctz) 25 mg PO QAM RICKY Stop: 05/04/19 08:59 Last Admin: 04/05/19 08:24 Dose: 25 mg Documented by: Hydroxyzine HCl (Vistaril) 25 mg PO Q4H PRN PRN Reason: Anxiety Stop: 05/03/19 19:55 Hydroxyzine HCl (Vistaril) 50 mg PO HSZ PRN PRN Reason: Insomnia Stop: 05/03/19 19:55 Lisinopril (Zestril) 20 mg PO QAM RICKY Stop: 05/04/19 08:59 Last Admin: 04/05/19 08:24 Dose: 20 mg Documented by: Lorazepam (Ativan) 1 - 3 mg PO UD PRN; Protocol PRN Reason: EtoH Withdrawal AWSS 6-10+ Stop: 05/03/19 19:59 Last Admin: 04/03/19 23:55 Dose: 1 mg Documented by: Magnesium Hydroxide (Milk Of Magnesia) 30 ml PO DAILY PRN PRN Reason: Heartburn Stop: 05/03/19 19:55 Sertraline HCl (Zoloft) 50 mg PO QAM RICKY Stop: 05/05/19 08:59 Last Admin: 04/05/19 08:25 Dose: 50 mg Documented by: Sodium Chloride (Worth Nasal) 1 - 2 sprays NA PRN PRN PRN Reason: Nasal Dryness/Congestion Stop: 05/03/19 19:55 Mental Health & Subst Abuse Tx Therapist Name of Therapist: None Feed House Supervisor Name of Feed House Supervisor: None Post Discharge Appointments Primary Care Physician Name Of Family Doctor: Herberth Amezcua CPT Code CPT Code 71157 (1) Depression Depression Type: unspecified Qualified Code(s): F32.9 - Major depressive disorder, single episode, unspecified (2) Alcohol addiction Substance use status: unspecified alcohol-induced disorder Qualified Code(s): F10.29 - Alcohol dependence with unspecified alcohol-induced disorder
[2019-04-06] MEDS: GABAPENTIN 600 MG TAB PO SCH ×2 (03:48→12:23)
[2019-04-06] MEDS: SERTRALINE HCL 50 MG TABLET PO SCH (09:14)
[2019-04-06] MEDS: LISINOPRIL 20 MG TAB PO SCH (09:14)
[2019-04-06] MEDS: hydroCHLOROthiazide 25 MG TAB PO SCH (09:14)
--- NOTE | 2019-04-06 15:50 | Discharge Summary ---
Date of Service April 06, 2019 History of Present Illness This is the patient's first psychiatric hospitalization. He presented to the ER requesting rehab, stating he had been drinking almost 1/5 of vodka daily and has been trying unsuccessfully to stop drinking for 4-5 years; on assessment there endorsed depression, hopelessness, and suicidal ideation with multiple plans and access to the means. He had thought of using nitrogen, which she has access to at work, or buying a gun and shooting himself to end his life. He was admitted voluntarily. His last drink was about 24 hours prior to presentation, and he was hypertensive with a history of withdrawal, so was started on the gabapentin taper and AWSS withdrawal protocol. He reported that he wants to ask his girlfriend to move in with him, but has not done so as he did not want her to see the extent of his drinking. He just disclosed his alcoholism to her this past weekend, and was agreeable to involving her in his parents and his treatment. He reported feeling depressed for years but never seeking treatment, and suicidal thoughts for the past week, as he felt it would be easier to end his life than to tell other people about his drinking problem. He reported being prescribed lisinopril/HCTZ a few months ago for high blood pressure, but has been noncompliant with it due to his drinking. He also reported over eating and poor diet, leading to obesity. On my assessment, he reports alcohol dependence for years, with multiple failed attempts to quit on his own. He planned to quit drinking the weekend of March 22, but was unable to and continued to drink. He has hidden his drinking from his family and friends, and although he and his girlfriend had talked about moving in together, he made no attempt to make that happen as he didn't want her to "have to live with my drinking." He typically drinks at night, and his girlfriend has never stayed overnight so has never been around him while drinking. He says his typical day is to "go to work, feel like shit, feel better as the day goes on," and typically starts drinking between 7-9 pm. 90% of the time he drinks vodka (otherwise beer), estimates he drinks 1/2 - 1 fifth a night. Longest period of sobriety in the past year or so was a weekend, prior to that he could go a week or two without drinking. Reports history of withdrawal including sleep disturbance, claminess, and diarrhea. Last drink was Tuesday night, and had sleep disturbance last night and loose stool this morning, but denies other withdrawal symptoms. Typically has cravings to drink, and thinks he continues to drink as "it makes the noise of the day kind of fade away," and helps him to fall asleep. Mood has been low for "years," but acutely worse over the past few weeks. Describes himself as introverted, but has been more isolative recently. Energy and concentration are low, he has guilt (regarding his drinking), fatigue, but no psychomotor changes. He started having suicidal thoughts around March 22 when he was unable to quit drinking on his own, thinking "I should just kill myself now before I'm too unhealthy or have a stroke or heart attack, that way I can take care of my own narrative." He describes plans to use nitrogen (saw a documentary on euthanasia, "seemed like a peaceful way to go,") or using a gun. He denies taking any steps towards acting on these, but was worried he might, "that's when I decided I needed help." He had thought about writing suicide notes, "but it was too hard," due to thinking about how his would affect his loved ones. Denies anxiety, panic, PTSD, OCD, psychosis and gino. Reports life long overeating of poor quality, unhealthy foods. Denies that he uses eating to cope, "that's what drinking is for." Denies binge eating and purging. He called his parents and told them he was hospitalized and about his alcoholism, and says they were "confused, they didn't know there was a problem, but glad I was getting help." Physical Exam Psychiatric Orientation: oriented x 3 Apperance: appropriately dressed and appropriately groomed Eye Contact: + fair eye contact Motor Behavior: steady gait and station and no abnormal motor movements Speech: normal rate/rhythm/volume of speech Affect: + constricted affect "Better." Thought Process: linear/logical thought process Thought Content: reality based without delusions Suicidal Thoughts: denies suicidal thoughts Homicidal Thoughts: denies homicidal thoughts Hallucinations: no auditory hallucinations, no visual hallucinations, no tactile hallucinations and no gustatory hallucinations Cognition: recent memory grossly intact, remote memory grossly intact, attention grossly intact and language grossly intact Estimated Intelligence: + above average estimated intelligence Insight: good insight Judgement: good judgement Vital Signs (Past 24 Hours) Last Vital Signs Temp 36.5 C 04/06/19 06:41 Pulse 101 H 04/06/19 06:42 Resp 20 04/06/19 06:41 BP 137/83 04/06/19 06:42 Pulse Ox 97 04/03/19 20:31 Principal Diagnosis Depression Psychiatric Data During the course of hospitalization the patient was offered various modalities of psychiatric treatment and education. These included individual, group, activity, and family therapy. In addition, he was started on the antidepressant medication sertraline at a dose of 50 mg daily. He tolerated sertraline without any difficulty. Material risks and anticipated benefits were reviewed with the patient, and he indicated understanding and reported that he was not aware of having any adverse reactions. Accordingly, we are increasing his dose of sertraline to a dose of 100 mg daily at discharge, and he was advised that an option would be to break the 100 mg tablet in half, pending reassessment should he find that he is unable to tolerate the higher dose. He was also given medication for hypertension (lisinopril and hydrochlorothiazide) and this medication was continued at discharge. The patient had a therapeutic breakthrough when he met with his parents and with his girlfriend in order to disclosed his alcohol misuse. The patient confirmed that in the weeks leading up to the hospitalization he had been consuming approximately a fifth of vodka every evening, secretly. He noted that he took care to not consume alcohol any time his girlfriend was planning to stop in, and he notes that he was able to talk to her on the phone while intoxicated without her evidently suspecting. (In fact, the girlfriend told us that she had not been aware that the patient had been drinking and acknowledges certain feelings of betrayal, given the longevity of their relationship and their plan to become domestic partners.) The patient's girlfriend as well as the patient's parents expressed an active willingness to provide support for the patient and his effort to achieve and maintain sobriety. The patient's mood brightened during the stay, although he continued to report feelings of depression. He also reported that his suicidal thoughts were never associated with any actual suicidal intent. Instead, he explained that he had had fleeting thoughts of suicide over time, but had come to the emergency room because he wanted a referral to a residential chemical dependency treatment program and, as part of his evaluation in the emergency department, disclose that he had suicidal thoughts, so it was recommended that he come to psychiatry first before being cleared for residential chemical dependency. The patient clearly is future oriented, and his goals include successfully entering into a domestic partnership with his girlfriend, achieving and maintaining abstinence from alcohol, and continuing his current jobreportedly a source of great satisfaction with the patient. In fact, he asked that we make arrangements for him to return to the community for 2 work days so that he could "tie up certain loose ends" at work, for example by referring certain projects to other people so that he could take time off for residential program. The patient's discharge plan included his going to stay with his parents while awaiting residential chemical dependency treatment which is to begin on 04/11/2019. He reports that his parents do not consume alcohol and do not keep alcohol in the house. They have also agreed to serve as a sober support for the patient while he believes his work-related tasks. The patient has been accepted at the [facility] chemical dependency treatment. He was interviewed for another program, but after considering various options decided on [facility] program. Day of Discharge Assessment During the hospital stay the patient was cooperative, although somewhat taciturn. At discharge, his mood was brighter and he was able to joke appropriately with staff. For example, while being assessed for tremors, he was asked to put out his hands. Instead of putting on both hands, he put out his left hand, show that was steady, and then put out his right hand and feigned a gross tremor while saying "this is my shooting hand!" The patient describes his mood as "better." However, he also notes that he remains depressed and has been depressed for some time now. The patient's speech is delivered at a normal rate and volume, and is spontaneous. His affect is somewhat constricted. Thought processes demonstrate tight associations. There is no evidence of any psychotic features and the patient's thought content, and perceptual disturbances are reported to be absent by the patient. The patient reports that he is not currently having suicidal thoughts and also notes that he had gone so far as to think of several possible methods for completing suicide, but that he never had any intent to follow through on these plans. Patient also reports that he has no thoughts of causing physical harm to the person or property of others. He has good insight into his depression and into his need to achieve and maintain sobriety. He is also aware of that, given his history, it would be highly advisable for him to consume any alcohol at all, and he is aware that alcohol relapses are generally triggered by "just 1 drink." The patient notes that he feels that his prognosis is good now that he has acknowledged his alcohol misuse to his parents and his girlfriend, and he is pleased by their responses and their willingness to be supportive. Advance Directives Advance Directives Information Provided: Yes Advance Directives: No Mental Health Advance Directive: No Advance Directives on File: No Living Will: No Power of Assembler Trim: No Advance Directives Reason:: Declines as Mental Health Visit. Risk Factors Assessment Male: Yes : Yes Do You Have Access To A Gun?: No Health Problems: Yes Mental Health Diagnoses: Yes Substance Use Disorders: Yes Previous Attempt: No Family History of Suicide: No Previous Psychiatric Hospitalization: No Hopelessness: Yes Smoker: No Protective Factors Assessment Protestant Beliefs: No : No Responsible for Young Children: No Employed: Yes [email or web address]) Stable Relationships: Yes Supportive Family: Yes Good Rapport with Provider: No Tobacco Cessation at Discharge Tobacco Cessation Medication Prescribed at Discharge: Not Applicable/Non-Smoker Total Time Total Time Spent: Greater Than 30 Minutes Total Time Includes: Examination of the patient, Discharge Planning, Medication Reconciliation and Communication with other providers Discharge Data Lab Results 04/03/19 04/03/19 04/03/19 15:00 15:00 15:00 WBC 12.08 H RBC 5.41 Hgb 18.4 H Hct 50.6 MCV 93.5 MCH 34.0 MCHC 36.4 H RDW Std Deviation 46.9 H RDW Coeff of Fawn 13.8 Plt Count 287 MPV 11.1 H Immature Gran % (Auto) 0.4 Neut % (Auto) 78.8 Lymph % (Auto) 12.6 [place] % (Auto) 6.9 Eos % (Auto) 0.9 Baso % (Auto) 0.4 Immature Gran # (Auto) 0.05 H Neut # (Auto) 9.52 H Lymph # (Auto) 1.52 [place] # (Auto) 0.83 H Eos # (Auto) 0.11 Baso # (Auto) 0.05 PT 10.9 INR 1.1 Sodium 139 Potassium 3.6 Chloride 106 Carbon Dioxide 26 Anion Gap 7.0 BUN 8 Creatinine 1.00 Est Cr Clr Drug Dosing 185.7 Est GFR ( Amer) 119.0 Est GFR (Non-Af Amer) 102.7 BUN/Creatinine Ratio 7.9 L Glucose 103 H Calcium 9.7 Magnesium 2.0 Total Bilirubin 0.6 AST 74 H ALT 99 H Alkaline Phosphatase 63 Total Protein 8.5 H Albumin 4.1 Globulin 4.4 H Albumin/Globulin Ratio 0.9 Lipase 145 Folate Urine Color Urine Appearance Urine pH Ur Specific [place] Urine Protein Urine Glucose (UA) Urine Ketones Urine Blood Urine Nitrite Urine Bilirubin Urine Urobilinogen Ur Leukocyte Esterase Urine WBC (Auto) Urine RBC (Auto) U Hyaline Cast (Auto) U Epithel Cells (Auto) Urine Bacteria (Auto) Salicylates Urine Opiates Screen Ur Methadone, Qual Acetaminophen Urine Barbiturates Ur Phencyclidine (PCP) U Amphetamin/Meth Scrn MDMA (Ecstasy) Screen U Benzodiazepines Scrn Ur Cocaine Metabolite U Marijuana (THC) Screen Ethyl Alcohol mg/dL 04/03/19 04/03/19 04/03/19 15:00 15:00 15:53 WBC RBC Hgb Hct MCV MCH MCHC RDW Std Deviation RDW Coeff of Fawn Plt Count MPV Immature Gran % (Auto) Neut % (Auto) Lymph % (Auto) [place] % (Auto) Eos % (Auto) Baso % (Auto) Immature Gran # (Auto) Neut # (Auto) Lymph # (Auto) [place] # (Auto) Eos # (Auto) Baso # (Auto) PT INR Sodium Potassium Chloride Carbon Dioxide Anion Gap BUN Creatinine Est Cr Clr Drug Dosing Est GFR ( Amer) Est GFR (Non-Af Amer) BUN/Creatinine Ratio Glucose Calcium Magnesium Total Bilirubin AST ALT Alkaline Phosphatase Total Protein Albumin Globulin Albumin/Globulin Ratio Lipase Folate Urine Color Urine Appearance Urine pH Ur Specific [place] Urine Protein Urine Glucose (UA) Urine Ketones Urine Blood Urine Nitrite Urine Bilirubin Urine Urobilinogen Ur Leukocyte Esterase Urine WBC (Auto) Urine RBC (Auto) U Hyaline Cast (Auto) U Epithel Cells (Auto) Urine Bacteria (Auto) Salicylates < 1.7 L Urine Opiates Screen Neg Ur Methadone, Qual Neg Acetaminophen < 2 L Urine Barbiturates Neg Ur Phencyclidine (PCP) Neg U Amphetamin/Meth Scrn Neg MDMA (Ecstasy) Screen Neg U Benzodiazepines Scrn Neg Ur Cocaine Metabolite Neg U Marijuana (THC) Screen Neg Ethyl Alcohol mg/dL < 3.0 04/03/19 04/03/19 15:53 20:19 WBC RBC Hgb Hct MCV MCH MCHC RDW Std Deviation RDW Coeff of Fawn Plt Count MPV Immature Gran % (Auto) Neut % (Auto) Lymph % (Auto) [place] % (Auto) Eos % (Auto) Baso % (Auto) Immature Gran # (Auto) Neut # (Auto) Lymph # (Auto) [place] # (Auto) Eos # (Auto) Baso # (Auto) PT INR Sodium Potassium Chloride Carbon Dioxide Anion Gap BUN Creatinine Est Cr Clr Drug Dosing Est GFR ( Amer) Est GFR (Non-Af Amer) BUN/Creatinine Ratio Glucose Calcium Magnesium Total Bilirubin AST ALT Alkaline Phosphatase Total Protein Albumin Globulin Albumin/Globulin Ratio Lipase Folate 9.60 Urine Color Dark Yellow Urine Appearance Clear Urine pH 7.0 Ur Specific [place] 1.029 Urine Protein Trace H Urine Glucose (UA) Negative Urine Ketones Trace H Urine Blood Negative Urine Nitrite Negative Urine Bilirubin Negative Urine Urobilinogen Positive H Ur Leukocyte Esterase Trace H Urine WBC (Auto) 1-5 Urine RBC (Auto) 0-4 U Hyaline Cast (Auto) 1-5 U Epithel Cells (Auto) 10-20 H Urine Bacteria (Auto) Negative Salicylates Urine Opiates Screen Ur Methadone, Qual Acetaminophen Urine Barbiturates Ur Phencyclidine (PCP) U Amphetamin/Meth Scrn MDMA (Ecstasy) Screen U Benzodiazepines Scrn Ur Cocaine Metabolite U Marijuana (THC) Screen Ethyl Alcohol mg/dL Hospital Course (1) Depression: 04/04 -discussed the diagnosis with the patient, as well as recommended treatment and the importance of addressing both his alcohol use disorder and mood disorder simultaneously. Most appropriate diagnosis is depression not oth erwise specified, as his depression and alcoholism developed simultaneously, so this could represent either major depressive disorder or substance-induced depression, or some combination of the 2. Discussed SSRI medications in general, and sertraline and particular, including review of side effects, risks, and benefits. Patient was given an UpToDate patient hand out on the medication. -Every 15 minute checks for safety. -Encourage group attendance and participation; work on healthy coping skills and discharge safety plan. -Family meeting with girlfriend and/or parents. 04/05 - Denies side effects to initiation of low-dose sertraline, continue to monitor. Consider further titration as tolerated - No significant improvement in mood, pt continues to feel defeated but suicidality is reduced from admission - Family meeting with parents and girlfriend today to discuss further 04/06 -Patient's dose of sertraline is increased to 100 mg a day. He is continuing to tolerate sertraline well and reports that he is having no adverse reactions to this medication. (2) Alcohol addiction: 04/04 - Brief intervention was offered and accepted Intervention was greater than 5 min in length. Brief interventions include: 1. Assess Readiness to Quit, 2. Advise: Help Patient to Reduce or Abstain from Alcohol, 3. Agree: Set Specific, Feasible Goals, 4. Assist: Anticipate barriers, Problem-Solving Solutions. Social work to 5. Arrange: Referrals to appropriate treatment. Summary of intervention: The patient is in determination stage with regards to transtheoretical model of change. The patient is advised to decrease alcohol consumption due to depressant effects and risk of interactions with prescription medications. The patient agreed to consider treatment options, including inpatient rehab, and will be provided with recovery materials to continue to education self on how to cope with their condition without drinking. -Recovery protocol. -Continue AWSS protocol for withdrawal, including gabapentin taper and lorazepam as needed. 04/05 - Pt admitting willingness for D&A rehab at discharge, recognizing his alcohol addiction is concerning and requires significant attention to change behaviors - Family meetings today with parents and girlfriend to discuss further 04/06 -The patient has been accepted at [facility] chemical dependency treatment program. He will enter that program on 04/11/2019 after "tying up a few loose ends" at his place of employment. -The patient did not experience any alcohol withdrawal symptoms during the stay and does not show signs of any impending withdrawal at the time of discharge. (3) HTN (hypertension): 04/04 - Patient reports he was diagnosed with HTN a couple of years ago after a screening at work, and started on lisinopril 20mg/HCTZ 25mg, which he has recently been nonadherent with. He was supposed to schedule with a PCP but has not. Will need referral for ongoing OP treatment. Resumed medication, and monitor BP. 04/05 - BP is slightly improved today; pt mentions it historically taking several days for readings to be affected by medications - will continue to monitor 04/06 -Discharge medications included lisinopril and hydrochlorothiazide for hypertension. (4) Obesity: 04/04 - Encourage healthy diet and regular exercise. Cutting out alcohol should also help with weight loss. 04/06 -The patient was reminded that alcohol consumption can contribute to obesity. He was again reminded to adhere to a healthy diet that includes portion control. He was also reminded of the need for regular exercise. Mental Health & Subst Abuse Tx Therapist Name of Therapist: None Seismic Interpreter Name of Seismic Interpreter: None Post Discharge Appointments Primary Care Physician Name Of Family Doctor: Herberth Amezcua Primary [facility] Time of Appointment with PCP: Follow up as needed Provider Appointment Comment: [address] [place] Smoking Cessation Counseling Tobacco Cessation Medication Prescribed at Discharge: Not Applicable/Non-Smoker Contact Information Discharge Discharge Address: [address] [place] [id number] Discharge Plan Discharge Items Patient Disposition: Home - Self-Care Reason For Visit: DEPRESSION Discharge Diagnosis: Depression Discharge Goals: Improve disease control, Improve function and Learn about illness Specific Goals: Abstain from alcohol use. Begin residential rehabilitation on 04/11. Activity: Resume your previous activity Non-emergency contact: Psychiatrist and Therapist Call non-emergency contact if: you have any medication questions and your symptoms worsen Follow-up/Referrals: PCP,NO [Primary Care Provider] - Diet: Regular Addtl Provider Instructions: Continue your road to sustained abstinence from alcohol. Remember that you cannot drink alcohol at all. Prescriptions: New lisinopril 20 mg Tablet 20 mg PO QAM Qty: 30 RF: 0 hydrochlorothiazide 25 mg Tablet 25 mg PO HS PRN (Reason: Sleep) Qty: 10 RF: 1 sertraline 100 mg tablet 100 mg PO DAILY Qty: 30 RF: 0 Discontinued lisinopril-hydrochlorothiazide 20 - 25 mg PO DAILY RF: 0 Stand-Alone Forms: [facility] Discharge Orders: Discharge Order (Routine); Ordered 04/06/19 Ordered By: Nirav Vazquez Admission Data Admit Date/Time: 04/03/19 20:42 Attending Provider: Cristela Jerry Admit Provider: Cristela Jerry Primary Care Provider: PCP,NO Service: Psychiatry Other Interventions: PSY Interdisciplinary Discharge Planning Last Done: 04/06/19 10:07 Pending Studies at Discharge: No
[2019-04-07] MEDS ORDERED: GABAPENTIN 600 MG TAB PO SCH (12:00)
== END 2019-04-06 17:10 | disposition home or self-care (01) | DRG 881 ==
LOC: ED 14:02 → 3S 20:31